=== PATIENT | female | born 1965 | race African-American/Black ===

== ENCOUNTER 2022-04-30 02:55 | Emergency (ER) | payer MEDICAID ==
[~2022-04-30] VITALS: Ht 167.6 cm; Wt 72.6 kg
[~2022-04-30 02:55] MED LIST: ALBU0.0912 IH
[2022-04-30 03:10] VITALS: BP 141/83
--- NOTE | 2022-04-30 03:10 | NUR ---
TO BED AMBULATORY
--- NOTE | 2022-04-30 03:30 | NUR ---
c/o difficulty breathing x 1 week. per pt, hx asthma. pt states she has been using her inhaler but ineffective. denies any allergies.
--- NOTE | 2022-04-30 03:58 | NUR ---
Dr. Luz evaluating patient.
[2022-04-30] MEDS ORDERED: ALBUTEROL 0.083% 2.5 MG/3 ML NEBU INH ONE (04:00)
[2022-04-30] MEDS ORDERED: predniSONE 20 MG TAB PO ONE (04:00)
[2022-04-30] MEDS ORDERED: IPRATROPIUM 0.02% 0.5 MG/2.5 ML NEBU INH ONE (04:00)
--- NOTE | 2022-04-30 04:06 | NUR ---
RT by bedside
--- NOTE | 2022-04-30 04:47 | NUR ---
Pt noted resting comfortably at this time. Per pt, 5/10 pain when coughing
[2022-04-30] MEDS ORDERED: PRED20TA5 PO (04:49)
[2022-04-30] MEDS ORDERED: ALBU0.0912 INH (04:49)
[2022-04-30 05:21] VITALS: BP 139/85
--- NOTE | 2022-04-30 05:21 | NUR ---
Patient discharged with v/s stable. Written and verbal after care instructions given and explained. New RX prednisone and proventil. Patient verbalized understanding. Ambulatory with steady gait. All questions addressed prior to discharge. Advised to follow up with PMD.
== END 2022-04-30 05:21 | disposition home or self-care (01) ==
LOC: MED 02:55
DX: J45.901 Unspecified asthma with (acute) exacerbation (principal); Z71.6 Tobacco abuse counseling; I10 Essential (primary) hypertension; F17.210 Nicotine dependence, cigarettes, uncomplicated; Z98.890 Other specified postprocedural states; Z79.899 Other long term (current) drug therapy
CPT/HCPCS: 71045; 94640; 99283; J7512; J7613; J7644; Q0092